=== PATIENT | female | born 1930 | race African-American/Black ===

== ENCOUNTER 2016-10-09 16:56 | Inpatient (IN) | payer MEDICARE, MEDICAID ==
[~2016-10-09] VITALS: Ht 154.9 cm; Wt 108.0 kg
[~2016-10-09 16:56] MED LIST: ATOR20TA65 PO; DILT240C3 PO; FURO20TA4 PO; HYDR-4134 PO; HYDR12.529 PO; INSU100I3 SUBCUT; INSU3INS6 SUBCUT; LISI10TA5; LISI40TA4 PO; OMEP20CA10 PO; PEG4000S4; SODI15OR4; TRAM50TA3 PO
[2016-10-09] MEDS ORDERED: MORPHINE SULFATE 2 MG/ML CPJ (NOT FOR IM USE) IV ONE (18:30)
[2016-10-09] MEDS ORDERED: ASPIRIN 325MG EC TABLET PO ONE (18:30)
[2016-10-09 18:54] LABS: BASOPHILS % 0.6 % (0.0-2.0); EOSINOPHILS % 1.4 % (0.0-5.0); HEMATOCRIT. 36.7 % (36.0-48.0); HEMOGLOBIN. 11.8 g/dL (12.0-16.0); MEAN CORPUSCULAR HEMOGLOBIN 31.4 pg (28.0-32.0); MEAN CORPUSCULAR HGB CONC 32.3 g/dL (31.0-37.0); MEAN CORPUSCULAR VOLUME 97.4 fL (81.0-99.0); MEAN PLATELET VOLUME 8.8 fl (7.4-10.4); MONOCYTES % 7.4 % (2.0-8.0); NEUTROPHILS % 65.6 % (40.0-76.0); PLATELET 210 x1000/uL (130-400); RED BLOOD CELL COUNT 3.77 mill/uL (4.2-5.4); RED CELL DISTRIBUTION WIDTH 14.9 % (11.6-14.6); WHITE BLOOD COUNT 8.8 x1000/uL (4.5-11.0)
[2016-10-09 18:55] LABS: CHLORIDE 101 mEq/L (98-107); INDEX HEMOLYSI 1 (1-3); INDEX ICTERIC 1 (1-4); INDEX LIPEMIC 1 (1-3)
[2016-10-09 18:58] LABS: PARTIAL THROMBOPLASTIN TIME 26.3 sec (24.0-34.0); PROTHROMBIN TIME 10.6 sec
[2016-10-09 19:04] LABS: ALANINE AMINOTRANSFERASE 19 IU/L (13-61); ALBUMIN 3.2 g/dL (3.4-5.0); ANION GAP 10; CALCIUM 8.6 mg/dL (8.5-10.1); CARBON DIOXIDE 30 mEq/L (21-32); UREA NITROGEN BLOOD 26 mg/dL (7-21); eGFR 34 mL/min (>60)
[2016-10-09 19:05] LABS: NT PRO B-TYPE NATRIURETIC PEP 640 pg/mL (5-125); TROPONIN I < 0.02 ng/mL (0.00-0.04)
[2016-10-09] MEDS ORDERED: MORPHINE SULFATE 2 MG/ML CPJ (NOT FOR IM USE) IV PRN (22:30)
[2016-10-09] MEDS ORDERED: ONDANSETRON HCL 4MG/2ML VIAL IV PRN (22:30)
[2016-10-09] MEDS ORDERED: GUAIFENESIN-DM 200MG-20MG/10ML UDC PO PRN (22:30)
[2016-10-09] MEDS ORDERED: IPRATROPIUM/ALBUTEROL 0.5-3(2.5)MG/3ML NEB INH PRN (22:30)
[2016-10-09] MEDS ORDERED: ACETAMINOPHEN 325MG TABLET PO PRN (22:30)
[2016-10-09] MEDS ORDERED: DOCUSATE SODIUM 100MG CAPSULE PO PRN (22:30)
[2016-10-09 23:40] VITALS: BP 155/78
[2016-10-10] VITALS: BP 155/78
[2016-10-10] MEDS ORDERED: DEXTROSE 50% WATER 50ML SYRINGE IV PRN (01:30)
[2016-10-10 04:00] VITALS: BP 113/51
[2016-10-10] MEDS: IPRATROPIUM/ALBUTEROL 0.5-3(2.5)MG/3ML NEB INH SCH ×4 (04:50→21:51)
[2016-10-10] MEDS: BLOOD SUGAR DIAGNOSTIC STRIP TEST SCH ×4 (05:59→21:59)
[2016-10-10 06:06] LABS: CHLORIDE 101 mEq/L (98-107); INDEX HEMOLYSI 1 (1-3); INDEX ICTERIC 1 (1-4); INDEX LIPEMIC 1 (1-3)
[2016-10-10 06:22] LABS: BASOPHILS % 0.5 % (0.0-2.0); HEMATOCRIT. 36.8 % (36.0-48.0); HEMOGLOBIN. 12.2 g/dL (12.0-16.0); LYMPHOCYTES % 28.4 % (20.0-50.0); MEAN CORPUSCULAR HEMOGLOBIN 32.4 pg (28.0-32.0); MEAN CORPUSCULAR HGB CONC 33.2 g/dL (31.0-37.0); MEAN CORPUSCULAR VOLUME 97.4 fL (81.0-99.0); MEAN PLATELET VOLUME 9.1 fl (7.4-10.4); MONOCYTES % 8.4 % (2.0-8.0); NEUTROPHILS % 60.7 % (40.0-76.0); PLATELET 190 x1000/uL (130-400); RED BLOOD CELL COUNT 3.78 mill/uL (4.2-5.4); RED CELL DISTRIBUTION WIDTH 14.7 % (11.6-14.6)
[2016-10-10 06:24] LABS: ANION GAP 12; CALCIUM 8.5 mg/dL (8.5-10.1); CARBON DIOXIDE 32 mEq/L (21-32); HDL CHOLESTEROL 87 mg/dL (40-59); LDL CHOLESTEROL 58 mg/dL (5-100); MAGNESIUM 2.9 mg/dL (1.8-2.4); TRIGLYCERIDE 47 mg/dL (0-150); TROPONIN I < 0.02 ng/mL (0.00-0.04); UREA NITROGEN BLOOD 23 mg/dL (7-21); eGFR 42 mL/min (>60)
[2016-10-10] MEDS ORDERED: OMEPRAZOLE 20MG CAPSULE EXTENDED RELEASE PO SCH (07:40)
[2016-10-10 08:00] VITALS: BP 138/56
[2016-10-10] MEDS: OMEPRAZOLE 20MG CAPSULE EXTENDED RELEASE PO SCH ×2 (08:03→17:21)
[2016-10-10] MEDS ORDERED: INSULIN LISPRO 12 UNIT SUBCUT SCH (08:10)
[2016-10-10] MEDS ORDERED: FUROSEMIDE 20MG TABLET PO SCH (09:00)
[2016-10-10] MEDS ORDERED: HYDROCHLOROTHIAZIDE 12.5MG CAPSULE PO SCH (09:00)
[2016-10-10] MEDS: HYDRALAZINE HCL 25MG TABLET PO SCH (09:43)
[2016-10-10] MEDS: LISINOPRIL 40MG TABLET PO SCH (09:43)
[2016-10-10] MEDS: DILTIAZEM HCL 240MG ER (24HR) PO SCH (09:44)
[2016-10-10] MEDS: INSULIN LISPRO (CUSTOM DOSE) 100 UNITS/ML SUBCUT SCH ×3 (09:45→18:19)
[2016-10-10] MEDS: INSULIN LISPRO 100 UNITS/ML SUBCUT SCH ×4 (09:47→21:00)
[2016-10-10] MEDS: ENOXAPARIN 40MG/0.4ML SYR SUBCUT SCH (09:48)
[2016-10-10 12:00] VITALS: BP 144/66
[2016-10-10 16:00] VITALS: BP 105/51
[2016-10-10 20:00] VITALS: BP 116/45
[2016-10-10] MEDS ORDERED: ATORVASTATIN CALCIUM 20MG TABLET PO SCH (21:00)
[2016-10-10] MEDS ORDERED: INSULIN DETEMIR UD 100 UNITS/ML SYR SUBCUT SCH (22:00)
[2016-10-11] VITALS: BP 121/59
[2016-10-11] MEDS: IPRATROPIUM/ALBUTEROL 0.5-3(2.5)MG/3ML NEB INH SCH ×3 (01:59→14:05)
[2016-10-11 04:00] VITALS: BP 154/75
[2016-10-11 06:37] LABS: CALCIUM 8.2 mg/dL (8.5-10.1)
[2016-10-11 06:54] LABS: BASOPHILS % 0.3 % (0.0-2.0); EOSINOPHILS % 1.8 % (0.0-5.0); HEMATOCRIT. 33.8 % (36.0-48.0); HEMOGLOBIN. 11.2 g/dL (12.0-16.0); LYMPHOCYTES % 26.1 % (20.0-50.0); MEAN CORPUSCULAR HEMOGLOBIN 31.8 pg (28.0-32.0); MEAN CORPUSCULAR HGB CONC 33.1 g/dL (31.0-37.0); MEAN CORPUSCULAR VOLUME 96.1 fL (81.0-99.0); MEAN PLATELET VOLUME 9.3 fl (7.4-10.4); MONOCYTES % 9.9 % (2.0-8.0); NEUTROPHILS % 61.9 % (40.0-76.0); PLATELET 188 x1000/uL (130-400); RED BLOOD CELL COUNT 3.52 mill/uL (4.2-5.4); RED CELL DISTRIBUTION WIDTH 14.8 % (11.6-14.6); WHITE BLOOD COUNT 7.6 x1000/uL (4.5-11.0)
[2016-10-11] MEDS: BLOOD SUGAR DIAGNOSTIC STRIP TEST SCH ×2 (07:40→12:26)
[2016-10-11 08:00] VITALS: BP 160/92
[2016-10-11] MEDS: INSULIN LISPRO (CUSTOM DOSE) 100 UNITS/ML SUBCUT SCH ×2 (08:45→13:34)
[2016-10-11] MEDS: ENOXAPARIN 40MG/0.4ML SYR SUBCUT SCH (08:46)
[2016-10-11] MEDS: HYDRALAZINE HCL 25MG TABLET PO SCH (08:46)
[2016-10-11] MEDS: INSULIN LISPRO 100 UNITS/ML SUBCUT SCH ×2 (08:46→13:34)
[2016-10-11] MEDS: DILTIAZEM HCL 240MG ER (24HR) PO SCH (08:46)
[2016-10-11] MEDS: LISINOPRIL 40MG TABLET PO SCH (08:47)
[2016-10-11] MEDS: OMEPRAZOLE 20MG CAPSULE EXTENDED RELEASE PO SCH (08:48)
[2016-10-11 12:00] VITALS: BP 136/85
[2016-10-11 15:41] VITALS: BP 136/85
[2016-10-11 16:00] VITALS: BP 147/68
== END 2016-10-11 16:00 | disposition home or self-care (01) | DRG 683 ==
LOC: ER 16:58 → 7WST 21:24 → SUPCPDRO 21:35
PROVIDERS: ADMIT Family Medicine Adult Medicine; ATTEND Family Medicine Adult Medicine
DX: N17.8 Other acute kidney failure (principal); I13.0 Hypertensive heart and chronic kidney disease with heart failure and stage 1 through stage 4 chronic kidney disease, or unspecified chronic kidney disease; E46 Unspecified protein-calorie malnutrition; I50.32 Chronic diastolic (congestive) heart failure; R07.89 Other chest pain; I10 Essential (primary) hypertension; N18.9 Chronic kidney disease, unspecified; E78.5 Hyperlipidemia, unspecified; D64.9 Anemia, unspecified; E11.22 Type 2 diabetes mellitus with diabetic chronic kidney disease; E86.0 Dehydration; I25.10 Atherosclerotic heart disease of native coronary artery without angina pectoris; G47.30 Sleep apnea, unspecified; Z90.49 Acquired absence of other specified parts of digestive tract; Z79.899 Other long term (current) drug therapy
CPT/HCPCS: 36415; 71010; 80048; 80053; 80061; 82962; 83735; 83880; 84443; 84484; 85025; 85610; 85730; 87804; 93005; 93306; 93970; 94640; 94664; 96374; 97161; 99285; J1650; J1815; J2270; J7620

== ENCOUNTER 2017-05-17 10:01 | Emergency (ER) | payer MEDICARE, MEDICAID ==
[~2017-05-17] VITALS: Ht 154.9 cm; Wt 106.0 kg
[~2017-05-17 10:01] MED LIST changes: -LISI10TA5
[2017-05-17] MEDS ORDERED: ONDANSETRON HCL 4MG/2ML VIAL IV STA (10:32)
[2017-05-17] MEDS ORDERED: FAMOTIDINE 20MG/2ML VIAL IV STA (10:32)
[2017-05-17] MEDS ORDERED: MAGNESIUM/ALUMINUM HYDROXIDE/SIMETHICONE 30ML UDC PO STA (10:32)
[2017-05-17 10:47] LABS: HEMATOCRIT. 36.7 % (36.0-48.0); MEAN CORPUSCULAR HEMOGLOBIN 31.3 pg (28.0-32.0); MEAN CORPUSCULAR VOLUME 95.5 fL (81.0-99.0); MEAN PLATELET VOLUME 8.7 fl (7.4-10.4); PLATELET 205 x1000/uL (130-400); RED BLOOD CELL COUNT 3.84 mill/uL (4.2-5.4); RED CELL DISTRIBUTION WIDTH 14.3 % (11.6-14.6)
[2017-05-17 10:55] LABS: PROTHROMBIN TIME 10.6 sec (9.4-11.6)
[2017-05-17 11:05] LABS: CARBON DIOXIDE 33 mEq/L (21-32); CHLORIDE 97 mEq/L (98-107); TROPONIN I < 0.02 ng/mL (0.00-0.04)
[2017-05-17 11:28] LABS: PLATELET ESTIMATE NORMAL
[2017-05-17 14:05] VITALS: BP 148/82
[2017-05-17 14:31] LABS: GLUCOSE URINE NEGATIVE (NEGATIVE); KETONES URINE NEGATIVE (NEGATIVE); LEUKOCYTE ESTERASE URINE NEGATIVE (NEGATIVE); NITRITE URINE NEGATIVE (NEGATIVE); OCCULT BLOOD URINE 3+ (NEGATIVE); PH URINE 6.5 (4.5-8.0); PROTEIN URINE NEGATIVE (NEGATIVE); SPECIFIC GRAVITY URINE 1.014 (1.005-1.030)
[2017-05-17 14:43] LABS: CLARITY URINE SL HAZY (CLEAR); COLOR URINE PALE YELLOW (YELLOW)
== END 2017-05-17 17:28 | disposition home or self-care (01) ==
LOC: ER 10:01
DX: R10.13 Epigastric pain (principal); R11.0 Nausea; R31.9 Hematuria, unspecified; M79.89 Other specified soft tissue disorders; E11.42 Type 2 diabetes mellitus with diabetic polyneuropathy; E78.00 Pure hypercholesterolemia, unspecified; I11.9 Hypertensive heart disease without heart failure; I48.91 Unspecified atrial fibrillation; Z90.49 Acquired absence of other specified parts of digestive tract; Z79.4 Long term (current) use of insulin
CPT/HCPCS: 36415; 70450; 71010; 80053; 81001; 83690; 83880; 84484; 85025; 85610; 93005; 96374; 96375; 99285; J2405; J3490

== ENCOUNTER 2018-03-16 22:40 | Emergency (ER) | payer MEDICARE, MEDICAID ==
[~2018-03-16] VITALS: Ht 154.9 cm; Wt 93.5 kg
[~2018-03-16 22:40] MED LIST changes: +ASPI-1159 PO; +DOCU-138 PO; -INSU100I3 SUBCUT
[2018-03-17 00:46] VITALS: BP 142/75
== END 2018-03-17 06:45 | disposition home or self-care (01) ==
LOC: ER 03-17 06:38
DX: E11.649 Type 2 diabetes mellitus with hypoglycemia without coma (principal); J44.9 Chronic obstructive pulmonary disease, unspecified; I10 Essential (primary) hypertension; Z90.49 Acquired absence of other specified parts of digestive tract; Z79.4 Long term (current) use of insulin
CPT/HCPCS: 36415; 82947; 99283

== ENCOUNTER 2018-09-17 11:50 | Inpatient (IN) | payer MEDICARE, MEDICAID ==
[~2018-09-17] VITALS: Ht 154.9 cm; Wt 105.2 kg
[2018-09-17] MEDS ORDERED: ASPIRIN 81MG TABLET PO ONE (12:45)
[2018-09-17 13:26] LABS: BASOPHILS % 0.7 % (0.0-2.0); EOSINOPHILS % 0.7 % (0.0-5.0); HEMATOCRIT. 35.9 % (36.0-48.0); HEMOGLOBIN. 11.4 g/dL (12.0-16.0); LYMPHOCYTES % 24.5 % (20.0-50.0); MEAN CORPUSCULAR HEMOGLOBIN 30.8 pg (28.0-32.0); MEAN CORPUSCULAR VOLUME 96.6 fL (81.0-99.0); MEAN PLATELET VOLUME 9.2 fl (7.4-10.4); MONOCYTES % 8.1 % (2.0-8.0); PLATELET 233 x1000/uL (130-400); RED BLOOD CELL COUNT 3.72 mill/uL (4.2-5.4); RED CELL DISTRIBUTION WIDTH 16.9 % (11.6-14.6)
[2018-09-17 13:32] LABS: CHLORIDE 106 mEq/L (98-107)
[2018-09-17 13:37] LABS: INR 1.1; PROTHROMBIN TIME 11.1 sec (9.1-11.1)
[2018-09-17] MEDS ORDERED: DOCUSATE SODIUM 100MG CAPSULE PO PRN (16:45)
[2018-09-17] MEDS ORDERED: GUAIFENESIN 200MG/10ML SUGAR FREE UDC PO PRN (16:45)
[2018-09-17] MEDS ORDERED: ONDANSETRON HCL 4MG/2ML INJ IV PRN (16:45)
[2018-09-17] MEDS ORDERED: ACETAMINOPHEN 325MG TABLET PO PRN (16:45)
[2018-09-17] MEDS ORDERED: HYDROMORPHONE HCL/PF 2MG/ML CPJ IV PRN (16:45)
[2018-09-17] MEDS ORDERED: HYDROCODONE/ACETAMINOPHEN 5/325MG TABLET PO PRN (16:45)
[2018-09-17 20:30] VITALS: BP 104/65
[2018-09-17] MEDS ORDERED: HYDRALAZINE HCL 25MG TABLET PO SCH (22:00)
[2018-09-17] MEDS ORDERED: DOXA4TAB2 PO (22:18)
[2018-09-17] MEDS ORDERED: LOSA100T14 PO (22:18)
[2018-09-17 22:20] VITALS: BP 104/65
[2018-09-18] VITALS: BP 168/54
[2018-09-18] MEDS: CLONIDINE 0.1MG TABLET PO PRN (00:20)
[2018-09-18 04:00] VITALS: BP 176/56
[2018-09-18] MEDS: HYDRALAZINE HCL 25MG TABLET PO SCH ×3 (06:32→22:12)
[2018-09-18 07:56] LABS: CHLORIDE 107 mEq/L (98-107)
[2018-09-18 08:00] VITALS: BP 125/63
[2018-09-18 08:17] LABS: LDL CHOLESTEROL 56 mg/dL (5-100)
[2018-09-18 08:19] LABS: HDL CHOLESTEROL 61 mg/dL (40-59); T4 FREE 1.14 ng/dL (0.76-1.46)
[2018-09-18 08:32] LABS: BG BASE EXCESS 5.4 mmol/L (-2.0-2.0); BG CARBOXYHEMOGLOBIN 0.5 % (0.5-1.5); BG DEOXYHEMOGLOBIN 1.7 % (0.0-5.0); BG FRACTION INSPIRED OXYGEN 28; BG HCO3 ACT 30.8 mmol/L (22.0-26.0); BG METHEMOGLOBIN 0.3 % (0.0-1.5); BG OXYGEN SATURATION 98.3 % (92.0-98.5); BG OXYHEMOGLOBIN 97.5 % (94.0-97.0); BG PCO2 48.8 mmHg (35.0-45.0); BG PH 7.418 (7.350-7.450); BG PO2 131.3 mmHg (75.0-100.0); BG SAMPLE SITE LEFT BRACHIAL; BG TOTAL HEMOGLOBIN 11.5 g/dL (12.0-18.0); BG VENT MODE NASAL CANNULA
[2018-09-18 08:53] LABS: BASOPHILS % 1.1 % (0.0-2.0); EOSINOPHILS % 2.6 % (0.0-5.0); HEMATOCRIT. 34.8 % (36.0-48.0); MEAN CORPUSCULAR HEMOGLOBIN 30.5 pg (28.0-32.0); MEAN CORPUSCULAR VOLUME 96.1 fL (81.0-99.0); MEAN PLATELET VOLUME 9.3 fl (7.4-10.4); MONOCYTES % 10.9 % (2.0-8.0); NEUTROPHILS % 55.4 % (40.0-76.0); RED BLOOD CELL COUNT 3.63 mill/uL (4.2-5.4); RED CELL DISTRIBUTION WIDTH 16.6 % (11.6-14.6)
[2018-09-18] MEDS: ASPIRIN 81MG EC TABLET PO SCH (08:54)
[2018-09-18] MEDS: FUROSEMIDE 40MG/4ML VIAL IV SCH (08:54)
[2018-09-18] MEDS: ENOXAPARIN 30MG/0.3ML SYR SUBCUT SCH ×2 (08:54→22:13)
[2018-09-18] MEDS: LISINOPRIL 20MG TABLET PO SCH (08:54)
[2018-09-18 09:11] LABS: PLATELET 207 x1000/uL (130-400)
[2018-09-18 12:00] VITALS: BP 156/67
[2018-09-18] MEDS ORDERED: SODIUM POLYSTYRENE SULFONATE 15 G/60 ML BOT PO NR (13:00)
[2018-09-18 16:00] VITALS: BP 185/71
[2018-09-18 16:30] VITALS: BP 151/77
[2018-09-18] MEDS ORDERED: DEXTROSE 50% WATER 50ML SYRINGE IV PRN (18:00)
[2018-09-18] MEDS ORDERED: REGADENOSON 0.4 MG/5 ML IV NR (20:30)
[2018-09-18] MEDS ORDERED: INSULIN LISPRO 100 UNITS/ML SUBCUT SCH (21:00)
[2018-09-18] MEDS: ATORVASTATIN CALCIUM 20MG TABLET PO SCH (22:13)
[2018-09-18] MEDS: BLOOD SUGAR DIAGNOSTIC STRIP TEST SCH (22:15)
[2018-09-18] MEDS: INSULIN LISPRO 100 UNITS/ML SUBCUT SCH (22:39)
[2018-09-19] VITALS: BP 159/48
[2018-09-19 04:00] VITALS: BP 117/63
[2018-09-19] MEDS: HYDRALAZINE HCL 25MG TABLET PO SCH ×3 (06:30→21:11)
[2018-09-19] MEDS: INSULIN LISPRO 100 UNITS/ML SUBCUT SCH ×4 (06:36→21:21)
[2018-09-19] MEDS: BLOOD SUGAR DIAGNOSTIC STRIP TEST SCH ×4 (06:36→21:11)
[2018-09-19 06:50] LABS: BASOPHILS % 2.2 % (0.0-2.0); EOSINOPHILS % 2.3 % (0.0-5.0); HEMATOCRIT. 35.4 % (36.0-48.0); HEMOGLOBIN. 11.4 g/dL (12.0-16.0); LYMPHOCYTES % 33.1 % (20.0-50.0); MEAN CORPUSCULAR HEMOGLOBIN 30.6 pg (28.0-32.0); MEAN CORPUSCULAR VOLUME 94.9 fL (81.0-99.0); MEAN PLATELET VOLUME 8.6 fl (7.4-10.4); MONOCYTES % 10.3 % (2.0-8.0); NEUTROPHILS % 52.1 % (40.0-76.0); PLATELET 233 x1000/uL (130-400); RED BLOOD CELL COUNT 3.73 mill/uL (4.2-5.4); RED CELL DISTRIBUTION WIDTH 16.7 % (11.6-14.6)
[2018-09-19 06:59] LABS: CHLORIDE 106 mEq/L (98-107)
[2018-09-19 08:00] VITALS: BP 192/69
[2018-09-19] MEDS: CLONIDINE 0.1MG TABLET PO PRN ×2 (08:07→20:52)
[2018-09-19] MEDS: FUROSEMIDE 40MG/4ML VIAL IV SCH (08:48)
[2018-09-19] MEDS: ASPIRIN 81MG EC TABLET PO SCH (08:49)
[2018-09-19] MEDS: LISINOPRIL 20MG TABLET PO SCH (08:49)
[2018-09-19] MEDS: ENOXAPARIN 30MG/0.3ML SYR SUBCUT SCH ×2 (08:50→20:53)
[2018-09-19 10:04] VITALS: BP 147/54
[2018-09-19] MEDS ORDERED: REGADENOSON 0.4 MG/5 ML IV ONE (11:35)
[2018-09-19 12:00] VITALS: BP 134/60
[2018-09-19] MEDS: DOXAZOSIN MESYLATE 4MG TABLET PO SCH (18:06)
[2018-09-19 20:00] VITALS: BP 177/67
[2018-09-19] MEDS: ATORVASTATIN CALCIUM 20MG TABLET PO SCH (20:52)
[2018-09-20] VITALS: BP 130/46
[2018-09-20 04:00] VITALS: BP 144/60
[2018-09-20] MEDS: HYDRALAZINE HCL 25MG TABLET PO SCH (06:19)
[2018-09-20] MEDS: BLOOD SUGAR DIAGNOSTIC STRIP TEST SCH ×2 (07:13→11:32)
[2018-09-20] MEDS: INSULIN LISPRO 100 UNITS/ML SUBCUT SCH ×2 (07:13→11:40)
[2018-09-20 07:56] LABS: CHLORIDE 106 mEq/L (98-107)
[2018-09-20 08:00] VITALS: BP 162/54
[2018-09-20] MEDS: FUROSEMIDE 40MG/4ML VIAL IV SCH (08:39)
[2018-09-20] MEDS: DOXAZOSIN MESYLATE 4MG TABLET PO SCH (08:40)
[2018-09-20] MEDS: ENOXAPARIN 30MG/0.3ML SYR SUBCUT SCH (08:40)
[2018-09-20] MEDS: ASPIRIN 81MG EC TABLET PO SCH (08:41)
[2018-09-20] MEDS ORDERED: LOSARTAN POTASSIUM 100 MG TABLET PO SCH (09:00)
[2018-09-20] MEDS ORDERED: LISINOPRIL 40MG TABLET PO SCH (09:00)
[2018-09-20 11:45] VITALS: BP 133/42
== END 2018-09-20 12:30 | disposition home or self-care (01) | DRG 291 ==
LOC: ER 13:02 → EDBEDREQ 17:30 → ENRESERV 18:01 → 5WST 18:06 → EDBEDREQ 18:09
PROVIDERS: ADMIT Hospitalist; ATTEND Hospitalist
DX: I13.0 Hypertensive heart and chronic kidney disease with heart failure and stage 1 through stage 4 chronic kidney disease, or unspecified chronic kidney disease (principal); I50.33 Acute on chronic diastolic (congestive) heart failure; E11.22 Type 2 diabetes mellitus with diabetic chronic kidney disease; E78.00 Pure hypercholesterolemia, unspecified; N18.9 Chronic kidney disease, unspecified; J45.909 Unspecified asthma, uncomplicated
CPT/HCPCS: 36415; 36600; 71045; 71275; 78452; 80048; 80061; 82375; 82805; 82962; 83735; 83880; 84439; 84443; 84484; 85379; 93005; 93017; 93306; 93970; 96374; 99291; A9500; J1650; J1815; J1940; J2785

== ENCOUNTER 2018-10-05 08:17 | Inpatient (IN) | payer MEDICARE, MEDICAID ==
[~2018-10-05] VITALS: Ht 154.9 cm; Wt 107.0 kg
[~2018-10-05 08:17] MED LIST changes: -DILT240C3 PO; +DOXA4TAB2 PO; -FURO20TA4 PO; -HYDR12.529 PO; +LOSA100T14 PO; -PEG4000S4; -SODI15OR4
[2018-10-05] MEDS ORDERED: ACETAMINOPHEN 325MG TABLET PO STA (09:02)
[2018-10-05] MEDS ORDERED: SODIUM CHLORIDE 0.9% 1000ML BAG (SEPSIS BOLUS) IV ONE (09:15)
[2018-10-05 09:37] LABS: CHLORIDE 104 mEq/L (98-107); INR 1.2; PROTHROMBIN TIME 11.9 sec (9.1-11.1)
[2018-10-05 09:43] LABS: HEMATOCRIT. 33.9 % (36.0-48.0); HEMOGLOBIN. 10.8 g/dL (12.0-16.0); MEAN CORPUSCULAR HEMOGLOBIN 30.7 pg (28.0-32.0); MEAN CORPUSCULAR VOLUME 96.3 fL (81.0-99.0); PLATELET 157 x1000/uL (130-400); RED BLOOD CELL COUNT 3.51 mill/uL (4.2-5.4); RED CELL DISTRIBUTION WIDTH 16.8 % (11.6-14.6)
[2018-10-05] MEDS ORDERED: CEFTRIAXONE 2 G PREMIX 50 ML IV ONE (09:45)
[2018-10-05 09:55] LABS: CLARITY URINE CLOUDY (CLEAR); COLOR URINE YELLOW (YELLOW); KETONES URINE NEGATIVE (NEGATIVE); LEUKOCYTE ESTERASE URINE 1+ (NEGATIVE); NITRITE URINE NEGATIVE (NEGATIVE); OCCULT BLOOD URINE 2+ (NEGATIVE); PROTEIN URINE 2+ (NEGATIVE); SPECIFIC GRAVITY URINE 1.021 (1.005-1.030)
[2018-10-05 10:16] LABS: PLATELET ESTIMATE NORMAL
[2018-10-05] MEDS ORDERED: MAGNESIUM/ALUMINUM HYDROXIDE/SIMETHICONE 30ML UDC PO PRN (12:00)
[2018-10-05] MEDS ORDERED: CLONIDINE 0.1MG TABLET PO PRN (12:00)
[2018-10-05] MEDS ORDERED: IPRATROPIUM/ALBUTEROL 0.5-3(2.5)MG/3ML NEB HHN PRN (12:00)
[2018-10-05] MEDS ORDERED: DOCUSATE SODIUM 100MG CAPSULE PO PRN (12:00)
[2018-10-05] MEDS ORDERED: ACETAMINOPHEN 325MG TABLET PO PRN (12:00)
[2018-10-05] MEDS ORDERED: PIPERACILLIN/TAZ 2.25G PREMIX 50 ML IV SCH (13:00)
[2018-10-05 16:05] LABS: CREATINE KINASE MB FRACTION 1.5 ng/mL (0.5-3.6)
[2018-10-05] MEDS: SODIUM CHLORIDE 0.45% 1,000 ML IV SCH (16:06)
[2018-10-05 20:00] VITALS: BP 146/42
[2018-10-05] MEDS ORDERED: DEXTROSE 50% WATER 50ML SYRINGE IV PRN (20:00)
[2018-10-05 20:11] VITALS: BP 146/42
[2018-10-05] MEDS: INSULIN LISPRO 100 UNITS/ML SUBCUT SCH (20:34)
[2018-10-05] MEDS: ENOXAPARIN 40MG/0.4ML SYR SUBCUT SCH (20:34)
[2018-10-05] MEDS: BLOOD SUGAR DIAGNOSTIC STRIP TEST SCH (20:34)
[2018-10-05] MEDS: PIPERACILLIN/TAZ 2.25G PREMIX 50 ML IV SCH (20:39)
[2018-10-05] MEDS ORDERED: INSU100C6 SQ (21:12)
[2018-10-05] MEDS ORDERED: FURO20TA4 MT (21:12)
[2018-10-06] VITALS: BP 146/48
[2018-10-06] MEDS ORDERED: AMLO5TAB4 MT (00:22)
[2018-10-06 00:39] LABS: CREATINE KINASE MB FRACTION 1.8 ng/mL (0.5-3.6)
[2018-10-06 04:00] VITALS: BP 140/49
[2018-10-06] MEDS: SODIUM CHLORIDE 0.45% 1,000 ML IV SCH ×2 (04:00→21:45)
[2018-10-06] MEDS: PIPERACILLIN/TAZ 2.25G PREMIX 50 ML IV SCH ×3 (04:01→22:53)
[2018-10-06] MEDS: BLOOD SUGAR DIAGNOSTIC STRIP TEST SCH ×4 (06:56→21:34)
[2018-10-06] MEDS: INSULIN LISPRO 100 UNITS/ML SUBCUT SCH ×4 (07:50→21:33)
[2018-10-06 08:00] VITALS: BP 117/45
[2018-10-06 08:05] LABS: HEMATOCRIT. 32.5 % (36.0-48.0); HEMOGLOBIN. 10.5 g/dL (12.0-16.0); MEAN CORPUSCULAR HEMOGLOBIN 30.7 pg (28.0-32.0); MEAN CORPUSCULAR VOLUME 95.7 fL (81.0-99.0); PLATELET 127 x1000/uL (130-400); RED CELL DISTRIBUTION WIDTH 16.5 % (11.6-14.6)
[2018-10-06 08:20] LABS: CHLORIDE 110 mEq/L (98-107)
[2018-10-06 08:28] LABS: LDL CHOLESTEROL 27 mg/dL (5-100)
[2018-10-06 08:30] LABS: HDL CHOLESTEROL 16 mg/dL (40-59)
[2018-10-06] MEDS: LISINOPRIL 10MG TABLET PO SCH (08:50)
[2018-10-06] MEDS: ASPIRIN 81MG EC TABLET PO SCH (08:50)
[2018-10-06 12:00] VITALS: BP 148/97
[2018-10-06 12:27] LABS: PLATELET ESTIMATE NORMAL
[2018-10-06 16:00] VITALS: BP 172/59
[2018-10-06] MEDS: MORPHINE SULFATE 4 MG/ML CPJ (NOT FOR IM USE) IV PRN (17:11)
[2018-10-06] MEDS: ONDANSETRON HCL 4MG/2ML INJ IV PRN (17:17)
[2018-10-06 20:00] VITALS: BP 147/54
[2018-10-06] MEDS: ENOXAPARIN 40MG/0.4ML SYR SUBCUT SCH (21:32)
[2018-10-07] VITALS: BP 167/69
[2018-10-07 04:00] VITALS: BP 158/50
[2018-10-07 06:06] LABS: HEMATOCRIT. 32.7 % (36.0-48.0); HEMOGLOBIN. 10.6 g/dL (12.0-16.0); MEAN CORPUSCULAR HEMOGLOBIN 31.1 pg (28.0-32.0); MEAN CORPUSCULAR VOLUME 95.9 fL (81.0-99.0); MEAN PLATELET VOLUME 9.8 fl (7.4-10.4); PLATELET 124 x1000/uL (130-400); RED BLOOD CELL COUNT 3.41 mill/uL (4.2-5.4); RED CELL DISTRIBUTION WIDTH 16.9 % (11.6-14.6)
[2018-10-07] MEDS: PIPERACILLIN/TAZ 2.25G PREMIX 50 ML IV SCH (06:10)
[2018-10-07 06:23] LABS: CHLORIDE 108 mEq/L (98-107)
[2018-10-07] MEDS: BLOOD SUGAR DIAGNOSTIC STRIP TEST SCH ×4 (06:23→21:28)
[2018-10-07] MEDS: INSULIN LISPRO 100 UNITS/ML SUBCUT SCH ×4 (07:25→21:35)
[2018-10-07 08:10] VITALS: BP 156/76
[2018-10-07] MEDS: ASPIRIN 81MG EC TABLET PO SCH (09:31)
[2018-10-07] MEDS: ONDANSETRON HCL 4MG/2ML INJ IV PRN (09:31)
[2018-10-07] MEDS: LISINOPRIL 10MG TABLET PO SCH (09:31)
[2018-10-07] MEDS: MORPHINE SULFATE 4 MG/ML CPJ (NOT FOR IM USE) IV PRN (09:32)
[2018-10-07 12:30] VITALS: BP 188/80
[2018-10-07] MEDS: HYDROCODONE/ACETAMINOPHEN 5/325MG TABLET PO PRN (12:56)
[2018-10-07 15:01] LABS: PLATELET ESTIMATE SLIGHTLY DECREASED
[2018-10-07 16:00] VITALS: BP 154/51
[2018-10-07] MEDS: CEFTRIAXONE 1 G PREMIX 50 ML IV SCH (16:24)
[2018-10-07 20:00] VITALS: BP 118/50
[2018-10-07] MEDS: ENOXAPARIN 40MG/0.4ML SYR SUBCUT SCH (21:33)
[2018-10-08] VITALS: BP 113/51
[2018-10-08 04:00] VITALS: BP 116/52
[2018-10-08] MEDS: HYDROCODONE/ACETAMINOPHEN 5/325MG TABLET PO PRN ×3 (04:30→16:39)
[2018-10-08] MEDS: BLOOD SUGAR DIAGNOSTIC STRIP TEST SCH ×4 (06:39→20:52)
[2018-10-08 07:04] LABS: HEMOGLOBIN. 11.1 g/dL (12.0-16.0); MEAN CORPUSCULAR HEMOGLOBIN 30.9 pg (28.0-32.0); MEAN CORPUSCULAR VOLUME 95.2 fL (81.0-99.0); MEAN PLATELET VOLUME 9.6 fl (7.4-10.4); PLATELET 150 x1000/uL (130-400); RED BLOOD CELL COUNT 3.58 mill/uL (4.2-5.4); RED CELL DISTRIBUTION WIDTH 16.9 % (11.6-14.6)
[2018-10-08 07:23] LABS: CHLORIDE 106 mEq/L (98-107)
[2018-10-08 08:00] VITALS: BP 152/54
[2018-10-08] MEDS: INSULIN LISPRO 100 UNITS/ML SUBCUT SCH ×4 (08:32→20:51)
[2018-10-08] MEDS: LISINOPRIL 10MG TABLET PO SCH (09:12)
[2018-10-08] MEDS: ASPIRIN 81MG EC TABLET PO SCH (09:12)
[2018-10-08 12:00] VITALS: BP 132/49
[2018-10-08 12:54] LABS: PLATELET ESTIMATE NORMAL
[2018-10-08 16:00] VITALS: BP 122/46
[2018-10-08] MEDS: CEFTRIAXONE 1 G PREMIX 50 ML IV SCH (16:35)
[2018-10-08] MEDS ORDERED: POTASSIUM CHLORIDE 20MEQ TABLET SR PO SCH (17:45)
[2018-10-08] MEDS: SODIUM CHLORIDE 0.45% 1,000 ML IV SCH ×2 (18:58→23:46)
[2018-10-08] MEDS: FUROSEMIDE 40MG/4ML VIAL IVP SCH (18:59)
[2018-10-08 20:40] VITALS: BP 153/66
[2018-10-08] MEDS: ENOXAPARIN 30MG/0.3ML SYR SUBCUT SCH (20:50)
[2018-10-08] MEDS: MORPHINE SULFATE 4 MG/ML CPJ (NOT FOR IM USE) IV PRN (21:56)
[2018-10-09 00:42] VITALS: BP 120/60
[2018-10-09 04:00] VITALS: BP 165/69
[2018-10-09] MEDS: BLOOD SUGAR DIAGNOSTIC STRIP TEST SCH ×2 (06:46→12:11)
[2018-10-09] MEDS: INSULIN LISPRO 100 UNITS/ML SUBCUT SCH ×2 (07:50→13:03)
[2018-10-09 08:04] VITALS: BP 154/77
[2018-10-09] MEDS: FUROSEMIDE 40MG/4ML VIAL IVP SCH (09:03)
[2018-10-09] MEDS: ENOXAPARIN 30MG/0.3ML SYR SUBCUT SCH (09:03)
[2018-10-09] MEDS: LISINOPRIL 10MG TABLET PO SCH (09:04)
[2018-10-09] MEDS ORDERED: FUROSEMIDE 40MG TABLET PO SCH (11:00)
[2018-10-09 12:00] VITALS: BP 161/71
[2018-10-09 12:31] VITALS: BP 154/77
[2018-10-09 16:00] VITALS: BP 148/69
== END 2018-10-09 16:49 | DRG 871 ==
LOC: ER 08:34 → 6WST 10:29 → EDBEDREQ 10:32 → ENRESERV 16:54 → 6WST 10-08 14:33
PROVIDERS: ADMIT Hospitalist; ATTEND Hospitalist
PROC: 5A09357 Assistance with Respiratory Ventilation, Less than 24 Consecutive Hours, Continuous Positive Airway Pressure (ICD-10-PCS; 2018-10-06)
PROC: 5A09357 Assistance with Respiratory Ventilation, Less than 24 Consecutive Hours, Continuous Positive Airway Pressure (ICD-10-PCS; 2018-10-07)
PROC: 02HV33Z Insertion of Infusion Device into Superior Vena Cava, Percutaneous Approach (ICD-10-PCS; principal; 2018-10-08)
PROC: B518ZZA Fluoroscopy of Superior Vena Cava, Guidance (ICD-10-PCS; 2018-10-08)
PROC: B548ZZA Ultrasonography of Superior Vena Cava, Guidance (ICD-10-PCS; 2018-10-08)
PROC: 5A09357 Assistance with Respiratory Ventilation, Less than 24 Consecutive Hours, Continuous Positive Airway Pressure (ICD-10-PCS; 2018-10-08)
DX: A41.50 Gram-negative sepsis, unspecified (principal); N17.0 Acute kidney failure with tubular necrosis; N39.0 Urinary tract infection, site not specified; I50.32 Chronic diastolic (congestive) heart failure; E11.9 Type 2 diabetes mellitus without complications; E66.01 Morbid (severe) obesity due to excess calories; R74.8 Abnormal levels of other serum enzymes; R10.31 Right lower quadrant pain; D25.9 Leiomyoma of uterus, unspecified; R07.9 Chest pain, unspecified; K21.9 Gastro-esophageal reflux disease without esophagitis; J45.909 Unspecified asthma, uncomplicated; I10 Essential (primary) hypertension; E78.00 Pure hypercholesterolemia, unspecified; D64.9 Anemia, unspecified; I11.0 Hypertensive heart disease with heart failure; D69.6 Thrombocytopenia, unspecified; Z87.440 Personal history of urinary (tract) infections; Z79.82 Long term (current) use of aspirin; Z79.899 Other long term (current) drug therapy; Z90.49 Acquired absence of other specified parts of digestive tract
CPT/HCPCS: 36415; 36569; 71045; 74176; 76856; 76937; 77001; 80061; 82550; 82553; 82962; 83036; 83605; 83735; 83880; 84145; 84484; 87077; 87186; 87804; 93005; 93970; 94640; 94660; 96361; 96365; 99291; C1725; C1893; J0696; J1650; J1815; J1940; J2270; J2405; J2543; J7030; J7620

== ENCOUNTER 2018-10-16 06:31 | Inpatient (IN) | payer MEDICARE, MEDICAID ==
[~2018-10-16] VITALS: Ht 152.6 cm; Wt 88.0 kg
[~2018-10-16 06:31] MED LIST changes: +AMLO5TAB4 MT; +FURO20TA4 MT; +INSU100C6 SQ
[2018-10-16] MEDS ORDERED: ONDANSETRON HCL 4MG/2ML INJ IV STA (07:50)
[2018-10-16] MEDS ORDERED: SODIUM CHLORIDE 0.9% 1000ML BAG (SEPSIS BOLUS) IV ONE (08:00)
[2018-10-16] MEDS ORDERED: FAMOTIDINE 20MG/2ML VIAL IV ONE (08:00)
[2018-10-16 09:00] LABS: BASOPHILS % 0.5 % (0.0-2.0); EOSINOPHILS % 0.7 % (0.0-5.0); HEMATOCRIT. 35.3 % (36.0-48.0); HEMOGLOBIN. 11.4 g/dL (12.0-16.0); LYMPHOCYTES % 13.7 % (20.0-50.0); MEAN CORPUSCULAR HEMOGLOBIN 30.7 pg (28.0-32.0); MEAN CORPUSCULAR VOLUME 95.1 fL (81.0-99.0); MEAN PLATELET VOLUME 9.4 fl (7.4-10.4); MONOCYTES % 7.7 % (2.0-8.0); NEUTROPHILS % 77.4 % (40.0-76.0); PLATELET 353 x1000/uL (130-400); RED BLOOD CELL COUNT 3.71 mill/uL (4.2-5.4); RED CELL DISTRIBUTION WIDTH 16.3 % (11.6-14.6)
[2018-10-16 09:06] LABS: CHLORIDE 92 mEq/L (98-107)
[2018-10-16] MEDS ORDERED: CEFTRIAXONE 1 G PREMIX 50 ML IV ONE (10:15)
[2018-10-16] MEDS ORDERED: LEVOFLOXACIN 500MG PREMIX 100 ML IV ONE (10:15)
[2018-10-16 10:32] LABS: INR 1.1; PARTIAL THROMBOPLASTIN TIME 23.6 sec (23.4-31.0); PROTHROMBIN TIME 10.7 sec (9.1-11.1)
[2018-10-16 11:15] LABS: CLARITY URINE CLOUDY (CLEAR); COLOR URINE YELLOW (YELLOW); KETONES URINE NEGATIVE (NEGATIVE); LEUKOCYTE ESTERASE URINE TRACE (NEGATIVE); NITRITE URINE NEGATIVE (NEGATIVE); OCCULT BLOOD URINE NEGATIVE (NEGATIVE); PH URINE 5.5 (4.5-8.0); PROTEIN URINE NEGATIVE (NEGATIVE); SPECIFIC GRAVITY URINE 1.011 (1.005-1.030); UROBILINOGEN URINE 0.2 E.U./dL (0.2-1.0)
[2018-10-16 12:00] VITALS: BP 136/46
[2018-10-16] MEDS ORDERED: LACTULOSE 20G/30ML UDC PO PRN (12:30)
[2018-10-16] MEDS ORDERED: NA PHOS,M-B/NA PHOS,DI-BA ENEMA 118ML PR PRN (12:30)
[2018-10-16] MEDS ORDERED: MAGNESIUM/ALUMINUM HYDROXIDE/SIMETHICONE 30ML UDC PO PRN (12:30)
[2018-10-16] MEDS ORDERED: DOCUSATE SODIUM 100MG CAPSULE PO PRN (12:30)
[2018-10-16] MEDS ORDERED: ACETAMINOPHEN 325MG TABLET PO PRN (12:30)
[2018-10-16] MEDS ORDERED: CLONIDINE 0.1MG TABLET PO PRN (12:30)
[2018-10-16] MEDS ORDERED: DEXTROSE 50% WATER 50ML SYRINGE IV PRN (12:45)
[2018-10-16] MEDS: AMLODIPINE 5MG TABLET PO SCH (13:41)
[2018-10-16] MEDS: ENOXAPARIN 40MG/0.4ML SYR SUBCUT SCH (13:43)
[2018-10-16] MEDS: INSULIN LISPRO 100 UNITS/ML SUBCUT SCH ×3 (13:46→22:04)
[2018-10-16] MEDS: SODIUM CHLORIDE 0.9% 1,000 ML IV SCH (13:46)
[2018-10-16] MEDS: LOSARTAN POTASSIUM 50 MG TABLET PO SCH (13:46)
[2018-10-16] MEDS: HYDROMORPHONE HCL/PF 2MG/ML CPJ IV PRN (15:19)
[2018-10-16] MEDS: ONDANSETRON HCL 4MG/2ML INJ IV PRN (15:20)
[2018-10-16 16:00] VITALS: BP 130/60
[2018-10-16] MEDS: BLOOD SUGAR DIAGNOSTIC STRIP TEST SCH ×2 (17:51→20:50)
[2018-10-16 20:00] VITALS: BP 149/56
[2018-10-16] MEDS: ATORVASTATIN CALCIUM 20MG TABLET PO SCH (20:50)
[2018-10-17] VITALS (7 sets, daily range): BP systolic 138–174; BP diastolic 49–69
[2018-10-17] MEDS: ONDANSETRON HCL 4MG/2ML INJ IV PRN ×3 (00:06→14:35)
[2018-10-17 06:44] LABS: CHLORIDE 99 mEq/L (98-107)
[2018-10-17] MEDS: BLOOD SUGAR DIAGNOSTIC STRIP TEST SCH ×4 (07:02→20:53)
[2018-10-17 07:11] LABS: BASOPHILS % 0.3 % (0.0-2.0); EOSINOPHILS % 1.5 % (0.0-5.0); HEMOGLOBIN. 11.4 g/dL (12.0-16.0); LYMPHOCYTES % 29.2 % (20.0-50.0); MEAN CORPUSCULAR HEMOGLOBIN 31.2 pg (28.0-32.0); MEAN CORPUSCULAR VOLUME 95.8 fL (81.0-99.0); MONOCYTES % 12.5 % (2.0-8.0); NEUTROPHILS % 56.5 % (40.0-76.0); PLATELET 350 x1000/uL (130-400); RED BLOOD CELL COUNT 3.65 mill/uL (4.2-5.4); RED CELL DISTRIBUTION WIDTH 16.1 % (11.6-14.6)
[2018-10-17] MEDS: LOSARTAN POTASSIUM 50 MG TABLET PO SCH (08:15)
[2018-10-17] MEDS: MULTIVITAMINS,THER W-MINERALS TABLET PO SCH (08:15)
[2018-10-17] MEDS: AMLODIPINE 5MG TABLET PO SCH (08:15)
[2018-10-17] MEDS: HYDROMORPHONE HCL/PF 2MG/ML CPJ IV PRN ×2 (08:17→16:23)
[2018-10-17] MEDS: INSULIN LISPRO 100 UNITS/ML SUBCUT SCH ×4 (08:17→21:28)
[2018-10-17] MEDS ORDERED: NA PHOS,M-B/NA PHOS,DI-BA ENEMA 118ML PR NR (11:45)
[2018-10-17] MEDS: ENOXAPARIN 40MG/0.4ML SYR SUBCUT SCH (12:05)
[2018-10-17] MEDS: SODIUM CHLORIDE 0.9% 1,000 ML IV SCH (15:19)
[2018-10-17] MEDS: ATORVASTATIN CALCIUM 20MG TABLET PO SCH (20:53)
[2018-10-18 04:00] VITALS: BP 182/77
[2018-10-18] MEDS: SODIUM CHLORIDE 0.9% 1,000 ML IV SCH (05:00)
[2018-10-18 06:23] LABS: HEMOGLOBIN. 10.6 g/dL (12.0-16.0); MEAN CORPUSCULAR HEMOGLOBIN 31.6 pg (28.0-32.0); MEAN CORPUSCULAR VOLUME 95.8 fL (81.0-99.0); PLATELET 335 x1000/uL (130-400); RED BLOOD CELL COUNT 3.34 mill/uL (4.2-5.4); RED CELL DISTRIBUTION WIDTH 16.1 % (11.6-14.6)
[2018-10-18 06:24] LABS: CHLORIDE 105 mEq/L (98-107)
[2018-10-18] MEDS: BLOOD SUGAR DIAGNOSTIC STRIP TEST SCH ×2 (06:38→12:18)
[2018-10-18 08:00] VITALS: BP 174/55
[2018-10-18] MEDS: MULTIVITAMINS,THER W-MINERALS TABLET PO SCH (09:15)
[2018-10-18] MEDS: LOSARTAN POTASSIUM 50 MG TABLET PO SCH (09:23)
[2018-10-18] MEDS: AMLODIPINE 5MG TABLET PO SCH (09:23)
[2018-10-18] MEDS: INSULIN LISPRO 100 UNITS/ML SUBCUT SCH (09:33)
[2018-10-18 11:20] VITALS: BP 174/55
[2018-10-18 16:24] LABS: PLATELET ESTIMATE NORMAL
== END 2018-10-18 12:07 | disposition home health service (06) | DRG 391 ==
LOC: ER 06:31 → EDBEDREQ 09:39 → EDBEDREQSVC 09:39 → ENRESERV 09:50 → 6EST 11:35
PROVIDERS: ADMIT Hospitalist; ATTEND Hospitalist
DX: K59.00 Constipation, unspecified (principal); N17.0 Acute kidney failure with tubular necrosis; I50.32 Chronic diastolic (congestive) heart failure; N39.0 Urinary tract infection, site not specified; K52.9 Noninfective gastroenteritis and colitis, unspecified; E11.9 Type 2 diabetes mellitus without complications; E78.00 Pure hypercholesterolemia, unspecified; E78.5 Hyperlipidemia, unspecified; I11.0 Hypertensive heart disease with heart failure; I25.10 Atherosclerotic heart disease of native coronary artery without angina pectoris; K21.9 Gastro-esophageal reflux disease without esophagitis; K44.9 Diaphragmatic hernia without obstruction or gangrene; Z90.49 Acquired absence of other specified parts of digestive tract
CPT/HCPCS: 36415; 71045; 74176; 82962; 83036; 83605; 83880; 84145; 84484; 93005; 93970; 94660; 96361; 96365; 96375; 99285; J0696; J1170; J1650; J1815; J1956; J2405; J3490; J7030